=== PATIENT | female | born 1960 | race Caucasian/White ===

== ENCOUNTER 2023-06-06 18:04 | Emergency (ER) | payer MEDICAID ==
[~2023-06-06] VITALS: Ht 170.2 cm; Wt 59.4 kg
[2023-06-06 18:09] VITALS: BP 113/65; TEMP 98.1; O2SAT 100
== END 2023-06-06 21:16 | disposition left against medical advice (07) ==
LOC: ER 18:23
DX: F10.129 Alcohol abuse with intoxication, unspecified (principal); Z53.21 Procedure and treatment not carried out due to patient leaving prior to being seen by health care provider; Y90.9 Presence of alcohol in blood, level not specified